=== PATIENT | female | born 1985 | race African-American/Black ===

== ENCOUNTER 2021-05-26 11:57 | Outpatient (CLI) | payer MEDICAID, SELFPAY ==
[2021-05-26 15:25] LABS: T4 Free Direct 0.95 ng/dL (0.76-1.46); Thyroid Stim Hormone (TSH) 0.98 uIU/mL (0.358-3.74)
== END 2021-05-26 23:59 | disposition home or self-care (01) ==
LOC: BIMLAB 11:59
PROVIDERS: Referring Provider Internal Medicine Endocrinology, Diabetes & Metabolism; Visit Provider Internal Medicine Endocrinology, Diabetes & Metabolism
DX: R94.6 Abnormal results of thyroid function studies (principal)
CPT/HCPCS: 36415; 84439; 84443